=== PATIENT | female | born 1955 | race African-American/Black ===

== ENCOUNTER 2022-09-23 21:14 | Inpatient (IN) ==
[2022-09-23] MEDS ORDERED: ONDANSETRON 4 MG/2 ML VIAL IV STA (21:31)
[2022-09-23] MEDS ORDERED: ALBUTEROL/IPRATROPIUM 3 ML NEB RESP TX STA (21:31)
[2022-09-23] MEDS ORDERED: ASPIRIN 325 MG TABLET PO STA (21:31)
[2022-09-23] MEDS ORDERED: MORPHINE 2 MG/1 ML SYRINGE IV STA (21:31)
[2022-09-23] MEDS ORDERED: methylPREDNISolone SOD SUC 125 MG/2 ML VIAL IV STA (21:31)
[2022-09-23] MEDS ORDERED: MAGNESIUM SULF RIDER 2 GM/50 ML PREMIX IV STA (21:31)
[2022-09-23] MEDS ORDERED: ALBUTEROL 2.5 MG/3 ML NEB RESP TX ONE (21:43)
[2022-09-23] MEDS ORDERED: ALBUTEROL NEB SOLN 5 MG/ML 20 ML/BOTTLE CONT NEB SCH (22:00)
[2022-09-24 00:20] LABS: Arterial Base Excess iSTAT -1 MMOL/L (-2.5-2.5); Arterial Bicarbonate iSTAT 25.9 MMOL/L (20-26); Arterial O2 Saturation iSTAT 96 % (95-100); Arterial PCO2 iSTAT 50 MM HG (35-48); Arterial PO2 iSTAT 86 MM HG (80-95); Arterial Total CO2 iSTAT 27 MMO/L (23-27); Arterial pH iSTAT 7.319 (7.35-7.45)
[2022-09-24 00:25] LABS: Basophils % 0.2 % (0.0-0.8); Eosinophils # 0.1 10*3/uL (0.0-0.87); Hematocrit 40.4 VOL% (35.7-47.0); Hemoglobin 12.6 GM/DL (12.0-16.0); Immature Granulocytes % 0.5 %; Immature Granulocytes Absolute 0.06 #; Lymphocytes # 1.2 10*3/uL (1.4-4.0); Mean Corpuscular HGB Conc 31.2 GM/DL (32-36); Mean Corpuscular Volume 101.8 FL (87-102); Mean Platelet Volume 9.2 FL (9.6-12.0); Monocytes # 0.3 10*3/uL (0.11-0.8); Monocytes % 2.5 % (1.7-12.7); Neutrophils % 85.8 % (38.7-73.9); Platelet Count 433 T/CUMM (130-400); Red Blood Count 3.97 MC/CUMM (3.8-5.5); Red Cell Distribution Width 14.9 % (9.3-17.3); White Blood Count 12.5 T/CUMM (4-12)
[2022-09-24 00:47] LABS: Alanine Aminotransferase 35 U/L (13-56); Albumin 3.9 G/DL (3.4-5.0); Alkaline Phosphatase 45 U/L (45-117); Aspartate Amino Transferase 23 U/L (0-37); Bilirubin,Total < 0.39 MG/DL (0.20-1.00); Blood Urea Nitrogen 15 MG/DL (7-18); Calcium 9.3 MG/DL (8.5-10.1); Carbon Dioxide 29 MMOL/L (21-32); Chloride 111 MMOL/L (98-107); Glucose 158 MG/DL (74-106); Osmolality,Calculated 289.8 MOS/KG (273-304); Potassium 4.3 MMOL/L (3.5-5.1); Sodium 144 MMOL/L (136-145); Total Protein 7.3 G/DL (6.4-8.2)
[2022-09-24 00:52] LABS: Barbiturates Screen,Urine Negative (Negative); Benzodiazepines Screen,Urine Negative (Negative); Cannabinoid Screen,Urine Negative (Negative); Opiate Screen,Urine Positive (Negative); Phencyclidine Screen,Urine Negative (Negative)
[2022-09-24] MEDS ORDERED: SODIUM CHLORIDE 0.9% 1,000 ML IV STA (01:04)
[2022-09-24] MEDS ORDERED: hydrALAZINE 20 MG/1 ML VIAL IV PRN (01:39)
[2022-09-24] MEDS ORDERED: ONDANSETRON 4 MG/2 ML VIAL IV PRN (01:39)
[2022-09-24] MEDS ORDERED: cefTRIAXone 1,000 MG in SODIUM CHLORIDE 0.9% 100 ML IV SCH (02:00)
[2022-09-24] MEDS ORDERED: LOPERAMIDE 2 MG CAPSULE PO PRN (02:09)
[2022-09-24] MEDS ORDERED: GLUCAGON 1 MG VIAL IM PRN (02:09)
[2022-09-24] MEDS ORDERED: DICLOFENAC 1% GEL 100 GM TUBE TOP PRN (02:09)
[2022-09-24] MEDS ORDERED: ALUMINUM/MAGNES/SIMETH MAX STR 30 ML UDCUP PO PRN (02:09)
[2022-09-24] MEDS ORDERED: MAGNESIUM HYDROXIDE SUSP 30 ML UDCUP PO PRN ×2 (02:09→06:00)
[2022-09-24] MEDS ORDERED: DEXTROSE 10% 250 ML BAG IV PRN (02:29)
[2022-09-24] MEDS: AZITHROMYCIN INJ 500 MG in SODIUM CHLORIDE 0.9% 250 ML IV SCH (03:35)
[2022-09-24 06:42] LABS: Bacteria,Urine Occasional /HPF (Few); Bilirubin,Urine Negative (Negative); Blood, Urine Negative (Negative); Glucose,Urine (UA) Negative (Negative); Ketones,Urine Negative (Negative); Nitrite,Urine Negative (Negative); Protein,Urine 30 mg/dL (Negative); RBC,Urine 1 /HPF (0-4); Urine Appearance Clear (Clear); Urine Color Yellow (Yellow); Urine Specific Gravity > 1.030 (1.001-1.035); Urine Urobilinogen 0.2 eU/dL (<2.0); Urine pH 5.5 (4.5-8.0)
[2022-09-24] MEDS: BUDESONIDE 0.25 MG/2 ML NEB RESP TX SCH ×3 (07:25→19:44)
[2022-09-24] MEDS: ALBUTEROL/IPRATROPIUM 3 ML NEB RESP TX SCH ×3 (07:25→19:44)
[2022-09-24] MEDS: methylPREDNISolone SOD SUC 125 MG/2 ML VIAL IV SCH ×3 (08:10→21:41)
[2022-09-24] MEDS: FOLIC ACID 1 MG TABLET PO SCH (09:11)
[2022-09-24] MEDS: ROSUVASTATIN 10 MG TABLET PO SCH (09:11)
[2022-09-24] MEDS: PANTOPRAZOLE 40 MG TABLET PO SCH (09:11)
[2022-09-24] MEDS: MULTIVITAMIN (CENTRUM) TABLET PO SCH (09:11)
[2022-09-24] MEDS: THIAMINE 100 MG TABLET PO SCH ×2 (09:11→21:41)
[2022-09-24] MEDS: INSULIN LISPRO 100 UNIT/ML SUBCUT SCH ×4 (09:21→21:41)
[2022-09-24] MEDS: BUPRENORPHINE NALOXONE BUCCAL SCH (09:25)
[2022-09-24] MEDS: ACETAMINOPHEN 325 MG TABLET PO PRN (15:24)
[2022-09-24] MEDS ORDERED: IPRATROPIUM 500 MCG/2.5 ML NEB RESP TX ONE (19:17)
[2022-09-24] MEDS ORDERED: ALBUTEROL 1.25 MG/3 ML NEB RESP TX ONE (19:18)
[2022-09-24] MEDS: traZODone 50 MG TABLET PO SCH (21:41)
[2022-09-24] MEDS: ENOXAPARIN 40 MG/0.4 ML SYRINGE SUBCUT SCH (21:41)
[2022-09-25] MEDS ORDERED: IPRATROPIUM 500 MCG/2.5 ML NEB RESP TX ONE ×3 (00:29→13:51)
[2022-09-25] MEDS ORDERED: ALBUTEROL 2.5 MG/3 ML NEB RESP TX ONE (00:29)
[2022-09-25] MEDS: ALBUTEROL/IPRATROPIUM 3 ML NEB RESP TX SCH ×4 (01:11→19:21)
[2022-09-25] MEDS: BUDESONIDE 0.25 MG/2 ML NEB RESP TX SCH ×4 (01:11→19:21)
[2022-09-25] MEDS: AZITHROMYCIN INJ 500 MG in SODIUM CHLORIDE 0.9% 250 ML IV SCH (03:50)
[2022-09-25 05:04] LABS: Basophils % 0.1 % (0.0-0.8); Hematocrit 35.9 VOL% (35.7-47.0); Hemoglobin 11.6 GM/DL (12.0-16.0); Immature Granulocytes % 0.8 %; Immature Granulocytes Absolute 0.15 #; Lymphocytes # 0.8 10*3/uL (1.4-4.0); Lymphocytes % 4.1 % (21.3-54.2); Mean Corpuscular HGB Conc 32.3 GM/DL (32-36); Mean Corpuscular Volume 99.4 FL (87-102); Mean Platelet Volume 9.7 FL (9.6-12.0); Monocytes # 0.4 10*3/uL (0.11-0.8); Platelet Count 441 T/CUMM (130-400); Red Blood Count 3.61 MC/CUMM (3.8-5.5); Red Cell Distribution Width 14.8 % (9.3-17.3); White Blood Count 19.7 T/CUMM (4-12)
[2022-09-25 05:25] LABS: Calcium 9.3 MG/DL (8.5-10.1); Osmolality,Calculated 300.3 MOS/KG (273-304); Potassium 4.5 MMOL/L (3.5-5.1)
[2022-09-25] MEDS: ACETAMINOPHEN 325 MG TABLET PO PRN ×2 (06:21→17:03)
[2022-09-25] MEDS: methylPREDNISolone SOD SUC 125 MG/2 ML VIAL IV SCH (06:25)
[2022-09-25 06:30] LABS: Lymphocytes 1 % (20-55); Platelet Estimate Adequate; Total Cells Counted 100
[2022-09-25] MEDS ORDERED: ALBUTEROL 1.25 MG/3 ML NEB RESP TX ONE ×2 (07:27→13:51)
[2022-09-25] MEDS: INSULIN LISPRO 100 UNIT/ML SUBCUT SCH ×4 (08:15→22:01)
[2022-09-25] MEDS: ROSUVASTATIN 10 MG TABLET PO SCH (08:55)
[2022-09-25] MEDS: PANTOPRAZOLE 40 MG TABLET PO SCH (08:55)
[2022-09-25] MEDS: MULTIVITAMIN (CENTRUM) TABLET PO SCH (08:55)
[2022-09-25] MEDS: THIAMINE 100 MG TABLET PO SCH ×2 (08:56→22:00)
[2022-09-25] MEDS: FOLIC ACID 1 MG TABLET PO SCH (08:56)
[2022-09-25] MEDS: BUPRENORPHINE NALOXONE BUCCAL SCH (08:57)
[2022-09-25] MEDS: MELOXICAM 7.5 MG TABLET PO SCH (11:27)
[2022-09-25] MEDS: predniSONE 20 MG TABLET PO SCH (22:00)
[2022-09-25] MEDS: ENOXAPARIN 40 MG/0.4 ML SYRINGE SUBCUT SCH (22:00)
[2022-09-25] MEDS: traZODone 50 MG TABLET PO SCH (22:00)
[2022-09-26] MEDS: ALBUTEROL/IPRATROPIUM 3 ML NEB RESP TX SCH ×4 (01:20→19:23)
[2022-09-26] MEDS: BUDESONIDE 0.25 MG/2 ML NEB RESP TX SCH ×4 (01:20→19:23)
[2022-09-26 04:45] LABS: Basophils % 0.1 % (0.0-0.8); Hematocrit 33.4 VOL% (35.7-47.0); Hemoglobin 10.7 GM/DL (12.0-16.0); Immature Granulocytes % 0.7 %; Immature Granulocytes Absolute 0.13 #; Lymphocytes # 0.8 10*3/uL (1.4-4.0); Lymphocytes % 4.4 % (21.3-54.2); Mean Corpuscular Volume 99.1 FL (87-102); Mean Platelet Volume 9.9 FL (9.6-12.0); Monocytes # 0.5 10*3/uL (0.11-0.8); Monocytes % 2.5 % (1.7-12.7); Neutrophils % 92.3 % (38.7-73.9); Platelet Count 390 T/CUMM (130-400); Red Blood Count 3.37 MC/CUMM (3.8-5.5); Red Cell Distribution Width 15.3 % (9.3-17.3); White Blood Count 18.8 T/CUMM (4-12)
[2022-09-26 05:01] LABS: Calcium 9.2 MG/DL (8.5-10.1); Osmolality,Calculated 299.4 MOS/KG (273-304); Potassium 4.2 MMOL/L (3.5-5.1)
[2022-09-26 06:19] LABS: Hypochromia Slight; Lymphocytes 6 % (20-55); Microcytosis Slight; Platelet Estimate Adequate; Total Cells Counted 100
[2022-09-26] MEDS ORDERED: ALBUTEROL 2.5 MG/3 ML NEB RESP TX ONE ×3 (07:09→19:00)
[2022-09-26] MEDS ORDERED: IPRATROPIUM 500 MCG/2.5 ML NEB RESP TX ONE ×3 (07:10→19:02)
[2022-09-26] MEDS: INSULIN LISPRO 100 UNIT/ML SUBCUT SCH ×4 (07:54→22:24)
[2022-09-26] MEDS: PANTOPRAZOLE 40 MG TABLET PO SCH (08:30)
[2022-09-26] MEDS: AZITHROMYCIN 250 MG TABLET PO SCH (08:30)
[2022-09-26] MEDS: THIAMINE 100 MG TABLET PO SCH ×2 (08:30→20:23)
[2022-09-26] MEDS: predniSONE 20 MG TABLET PO SCH ×2 (08:30→20:23)
[2022-09-26] MEDS: MULTIVITAMIN (CENTRUM) TABLET PO SCH (08:30)
[2022-09-26] MEDS: ROSUVASTATIN 10 MG TABLET PO SCH (08:30)
[2022-09-26] MEDS: FOLIC ACID 1 MG TABLET PO SCH (08:30)
[2022-09-26] MEDS: MELOXICAM 7.5 MG TABLET PO SCH (08:31)
[2022-09-26] MEDS: BUPRENORPHINE NALOXONE BUCCAL SCH (08:33)
[2022-09-26] MEDS: NICOTINE 21 MG/24 HR PATCH TRANSDERM PRN (08:58)
[2022-09-26] MEDS: HEPARIN 5,000 UNIT/1 ML VIAL SUBCUT SCH (14:42)
[2022-09-26] MEDS: ACETAMINOPHEN 325 MG TABLET PO PRN (18:38)
[2022-09-26] MEDS ORDERED: LABETALOL 20 MG/4 ML SYRINGE IV ONE (20:06)
[2022-09-26] MEDS: traZODone 50 MG TABLET PO SCH (20:23)
[2022-09-26 22:04] LABS: Arterial Base Excess iSTAT 3 MMOL/L (-2.5-2.5); Arterial Bicarbonate iSTAT 27.1 MMOL/L (20-26); Arterial O2 Saturation iSTAT 99 % (95-100); Arterial PCO2 iSTAT 39 MM HG (35-48); Arterial PO2 iSTAT 116 MM HG (80-95); Arterial Total CO2 iSTAT 28 MMO/L (23-27); Arterial pH iSTAT 7.453 (7.35-7.45)
[2022-09-26] MEDS ORDERED: CLORAZEPATE 3.75 MG TABLET PO ONE (23:00)
[2022-09-27] MEDS: ALBUTEROL/IPRATROPIUM 3 ML NEB RESP TX SCH ×2 (02:51→07:01)
[2022-09-27] MEDS: BUDESONIDE 0.25 MG/2 ML NEB RESP TX SCH ×2 (02:53→08:01)
[2022-09-27 05:59] LABS: Basophils % 0.1 % (0.0-0.8); Hematocrit 34.6 VOL% (35.7-47.0); Hemoglobin 11.1 GM/DL (12.0-16.0); Immature Granulocytes % 0.7 %; Immature Granulocytes Absolute 0.09 #; Lymphocytes # 1.1 10*3/uL (1.4-4.0); Lymphocytes % 8.9 % (21.3-54.2); Mean Corpuscular HGB Conc 32.1 GM/DL (32-36); Mean Corpuscular Volume 98.3 FL (87-102); Mean Platelet Volume 10.1 FL (9.6-12.0); Monocytes # 0.6 10*3/uL (0.11-0.8); Neutrophils % 85.3 % (38.7-73.9); Platelet Count 396 T/CUMM (130-400); Red Blood Count 3.52 MC/CUMM (3.8-5.5); Red Cell Distribution Width 15.2 % (9.3-17.3); White Blood Count 12.5 T/CUMM (4-12)
[2022-09-27 06:14] LABS: Calcium 9.3 MG/DL (8.5-10.1); Osmolality,Calculated 293.6 MOS/KG (273-304); Potassium 4.2 MMOL/L (3.5-5.1)
[2022-09-27] MEDS: HEPARIN 5,000 UNIT/1 ML VIAL SUBCUT SCH ×2 (06:27→14:34)
[2022-09-27] MEDS: INSULIN LISPRO 100 UNIT/ML SUBCUT SCH ×3 (07:22→17:42)
[2022-09-27] MEDS ORDERED: ALBUTEROL 2.5 MG/3 ML NEB RESP TX ONE (08:23)
[2022-09-27] MEDS ORDERED: LEVALBUTEROL 0.63 MG/3 ML NEB RESP TX ONE (08:37)
[2022-09-27] MEDS: MULTIVITAMIN (CENTRUM) TABLET PO SCH (08:59)
[2022-09-27] MEDS: ROSUVASTATIN 10 MG TABLET PO SCH (08:59)
[2022-09-27] MEDS ORDERED: CLORAZEPATE 3.75 MG TABLET PO SCH (09:00)
[2022-09-27] MEDS: PANTOPRAZOLE 40 MG TABLET PO SCH (09:00)
[2022-09-27] MEDS: MELOXICAM 7.5 MG TABLET PO SCH ×2 (09:00→12:01)
[2022-09-27] MEDS ORDERED: LOSARTAN 50 MG TABLET PO SCH (09:00)
[2022-09-27] MEDS ORDERED: amLODIPine 5 MG TABLET PO SCH (09:00)
[2022-09-27] MEDS ORDERED: METOPROLOL TARTRATE 25 MG TABLET PO SCH (09:00)
[2022-09-27] MEDS: FOLIC ACID 1 MG TABLET PO SCH (09:00)
[2022-09-27] MEDS: THIAMINE 100 MG TABLET PO SCH (09:01)
[2022-09-27] MEDS: predniSONE 20 MG TABLET PO SCH (09:01)
[2022-09-27] MEDS: AZITHROMYCIN 250 MG TABLET PO SCH (09:02)
[2022-09-27] MEDS: NICOTINE 21 MG/24 HR PATCH TRANSDERM PRN (09:02)
[2022-09-27] MEDS: BUPRENORPHINE NALOXONE BUCCAL SCH (09:05)
[2022-09-27 12:26] VITALS: BP 129/82
== END 2022-09-27 18:10 | disposition home or self-care (01) | DRG 190 ==
LOC: N.ED 21:14 → SUATTDRO 09-24 01:39 → N.EDINP 09-24 01:39 → N.TELEN 09-24 05:12
PROVIDERS: ADMIT Emergency Medicine; ATTEND Internal Medicine